=== PATIENT | female | born 1980 | race Caucasian/White ===

== ENCOUNTER 2023-08-15 04:21 | Day surgery (SDC) | payer BC ==
[2023-08-08 10:56] VITALS: BMI 35.5
[2023-08-15] MEDS ORDERED: oxyCODONE HCL 5 MG TABLET PO PRN (10:34)
[2023-08-15] MEDS ORDERED: ACETAMINOPHEN 1000 MG/100 ML BAG IVPB PRN (10:34)
[2023-08-15] MEDS ORDERED: PROMETHAZINE HCL 25 MG/1 ML VIAL IVPB PRN (10:34)
[2023-08-15] MEDS ORDERED: ONDANSETRON 4 MG/2 ML VIAL IVPUSH PRN (10:34)
[2023-08-15] MEDS ORDERED: DEXAMETHASONE SOD PHOSPHATE 4 MG/1 ML VIAL ONE (10:39)
[2023-08-15] MEDS ORDERED: MIDAZOLAM HCL 2 MG/2 ML SINGLE DOSE VIAL ONE (10:39)
[2023-08-15] MEDS ORDERED: KETOROLAC TROMETHAMINE 30 MG/1 ML VIAL ONE (10:39)
[2023-08-15] MEDS ORDERED: PROPOFOL 20 ML ONE (10:39)
[2023-08-15] MEDS ORDERED: LIDOCAINE HCL/PF 2% SDV 5ML VIAL ONE (10:39)
[2023-08-15] MEDS ORDERED: LACTATED RINGERS SOLUTION 1,000 ML IV SCH (10:45)
[2023-08-15] MEDS ORDERED: ceFAZolin SODIUM 1 GM VIAL ONE (10:58)
[2023-08-15] MEDS ORDERED: ceFAZolin SODIUM 1 GM VIAL IVPB ONE (10:58)
[2023-08-15] MEDS ORDERED: SEVOFLURANE 250 ML BTL ONE (11:09)
[2023-08-15] MEDS ORDERED: PROMETHAZINE HCL 25 MG/1 ML VIAL ONE (12:41)
[2023-08-15 14:24] VITALS: BP 119/68; PULSE 61; RESP 18; TEMP 97.1
== END 2023-08-15 14:32 | disposition home or self-care (01) ==
LOC: JASU-SURG 04:21
PROVIDERS: ATTEND Obstetrics & Gynecology
PROC: 0UB98ZZ Excision of Uterus, Via Natural or Artificial Opening Endoscopic (ICD-10-PCS; principal; 2023-08-15 10:00)
DX: N84.0 Polyp of corpus uteri (principal)
CPT/HCPCS: 88305-TC; 94760